=== PATIENT | female | born 1990 | race African-American/Black ===

== ENCOUNTER 2018-12-09 08:56 | Emergency (ER) | payer OTHER ==
[2018-12-09 09:12] VITALS: BP 115/76
[2018-12-09] MEDS ORDERED: ALBUTEROL NEB 2.5 MG/3 ML INH STA (09:19)
--- NOTE | 2018-12-09 09:28 | ED Physician Documentation ---
History of Present Illness - Stated complaint Stated Complaint: COUGH/TIGHT CHEST - Chief complaint Chief Complaint: General - History obtained from History obtained from: Patient - History of Present Illness Timing: Yesterday Pain level max: 7 Pain level now: 2 Improved by: rest Worsened by: nothing - Additonal information Additional information: 28-year-old female presents to the emergency department with mild dry cough and chest tightness. She states that it became suddenly tight this morning lasted for approximately 30 seconds and is now feeling better. Still feels like she is having trouble taking a deep breath. States she has not had any fevers. States that she does have nasal congestion and difficulty breathing through her nose. Has not taken anything for this. Denies any possibility of . She is not currently or breast-feeding. She does not use any medications at home. Review of Systems Ten Systems: 10 systems reviewed and negative Constitutional: denies: Fever, Chills Nose: reports: Rhinorrhea / runny nose, Congestion Throat: denies: Sore throat Respiratory: reports: Dyspnea, Cough, Wheezing GI: denies: Abdominal Pain, Nausea, Vomiting, Diarrhea : denies: Now EGA Skin: denies: Rash Musculoskeletal: denies: Neck pain, Back pain Neurologic: denies: Headache PD PAST MEDICAL HISTORY - Past Medical History Past Medical History: No - Past Surgical History Past Surgical History: No - Present Medications Home Medications: Ambulatory Orders Medication Instructions Recorded Confirmed Albuterol Sulf [Ventolin Hfa 1 - 2 puffs INH Q4HR PRN #1 inhaler 12/09/18 Inhaler] Benzonatate [Tessalon Perle] 100 - 200 mg PO TID PRN #30 capsule 12/09/18 Cetirizine HCl/Pseudoephedrine 1 each PO BID PRN #30 tab.er.12h 12/09/18 [Zyrtec-D Tablet] - Allergies Allergies/Adverse Reactions: Allergies Allergy/AdvReac Type Severity Reaction Status Date / Time No Known Drug Allergies Allergy Verified 12/09/18 09:12 - Living Situation Living Arrangement: reports: At home - Social History Does the pt have substance abuse?: No - Family History Family history: reports: Non contributory - Immunizations Immunizations are current?: Yes PD ED PE NORMAL - Vitals Vital signs reviewed: Yes - General General: Alert and oriented X 3, No acute distress, Well developed/nourished - HEENT HEENT: Ears normal, Moist mucous membranes, Pharynx benign - Neck Neck: Supple, no meningeal sign - Cardiac Cardiac: RRR, Strong equal pulses - Respiratory Respiratory: No respiratory distress, Other (Mild decreased breath sounds bilate rally) - Abdomen Abdomen: Soft, Non tender, Non distended - Derm Derm: Warm and dry, No rash - Extremities Extremities: No edema - Neuro Neuro: Alert and oriented X 3 - Psych Psych: Normal mood, Normal affect Results - Vitals Vitals: Vital Signs - 24 hr 12/09/18 09:00 Temperature 36.4 C L Heart Rate 83 Respiratory 18 Rate Blood Pressure 115/76 O2 Saturation 100 Oxygen O2 Source Room air PD MEDICAL DECISION MAKING - ED course Complexity details: re-evaluated patient, considered differential, d/w patient ED course: 28-year-old female with what appears to be a viral upper respiratory infection. She is very well-appearing, nontoxic. Appears to have had bronchospasm this morning. Will prescribe an inhaler for home. Feels better after albuterol here. We will have her follow-up with her doctor as needed for further care. Patient counseled regarding signs and symptoms for which I believe and urgent re-evaluation would be necessary. Patient with good understanding of and agreement to plan and is comfortable going home at this time This document was made in part using voice recognition software. While efforts are made to proofread this document, sound alike and grammatical errors may occur. Departure - Departure Disposition: 01 Home, Self Care Clinical Impression: Viral URI with cough Condition: Good Instructions: ED URI Viral Follow-Up: your,doctor if not better in 1 week [Other] Prescriptions: Albuterol Sulf [Ventolin Hfa Inhaler] 1 - 2 puffs INH Q4HR PRN #1 inhaler PRN Reason: Shortness Of Air/Wheezing Benzonatate [Tessalon Perle] 100 - 200 mg PO TID PRN #30 capsule PRN Reason: Cough Cetirizine HCl/Pseudoephedrine [Zyrtec-D Tablet] 1 each PO BID PRN #30 tab.er.12h PRN Reason: nasal congestion Comments: Return if you worsen. Drink plenty of fluids and rest. Use the inhaler as needed.
== END 2018-12-09 10:14 | disposition home or self-care (01) ==
LOC: ED 08:56
DX: J06.9 Acute upper respiratory infection, unspecified (principal); B97.89 Other viral agents as the cause of diseases classified elsewhere
CPT/HCPCS: 94640; 99283

== ENCOUNTER 2019-04-15 17:29 | Outpatient (CLI) | payer OTHER | END 2019-04-15 17:30 | disposition EMS.NT | LOC: EMS 17:29 | PROVIDERS: ATTEND Surgery | DX: R20.2 Paresthesia of skin (principal); R00.0 Tachycardia, unspecified ==

== ENCOUNTER 2019-04-28 19:38 | Emergency (ER) | payer OTHER ==
--- NOTE | 2019-04-28 20:03 | ED Physician Documentation ---
PD HPI NVD - Stated complaint Stated Complaint: VOMITING - Chief complaint Chief Complaint: Abd Pain - History obtained from History obtained from: Patient - History of Present Illness Timing - onset: Today Timing - duration: Hours Timing - details: Abrupt onset, Still present Associated symptoms: Abdominal pain (Intermittent cramping abdominal pain diffusely but more in the lower abdomen. She has also feeling her abdomen distended and "feeling like I am " after starting with the colonoscopy prep today. She has a colonoscopy scheduled tomorrow for evaluation of chronic constipation for the last many months. She has take daily stool softener and also does a daily enema to have bowel movements every 2 to 3 days.), Other (She did several glasses of the GoLYTELY and also had taken some mag citrate to start her colonoscopy prep. She became nauseous with abdominal bloating and vomited a couple of times. She denies any persistent pain.). No: Fever, Chest pain, Near syncope / syncope Contributing factors: No: Sick contact, Bad food Similar symptoms before: Has not had sx before (She has chronic constipation we will have occasional cramping but not to this degree or consistency. Had only started after the colonoscopy prep.) Review of Systems Constitutional: denies: Fever, Chills, Myalgias Nose: denies: Rhinorrhea / runny nose, Congestion Throat: denies: Sore throat Respiratory: denies: Cough GI: reports: Abdominal Pain (intermittent cramping), Abdominal Swelling (the past few hours), Nausea, Vomiting (2-3 times), Constipation. denies: Diarrhea, Hematemesis, Bloody / black stool : denies: Dysuria, Frequency, Discharge Musculoskeletal: denies: Back pain PD PAST MEDICAL HISTORY - Past Medical History Cardiovascular: None Respiratory: None Neuro: None Endocrine/Autoimmune: None GI: None PREPRESS OPERATOR: None : None HEENT: None Psych: Anxiety Musculoskeletal: None Derm: None - Past Surgical History Past Surgical History: No /PREPRESS OPERATOR: Dilation and currettage, Other - Allergies Allergies/Adverse Reactions: Allergies Allergy/AdvReac Type Severity Reaction Status Date / Time No Known Drug Allergies Allergy Verified 04/28/19 19:46 - Social History Does the pt smoke?: No Smoking Status: Never smoker Does the pt drink ETOH?: No Does the pt have substance abuse?: No - Immunizations Immunizations are current?: Yes - POLST Patient has POLST: No PD ED PE NORMAL - Vitals Vital signs reviewed: Yes - General General: Alert and oriented X 3, No acute distress (does not seem uncomfortable here. ), Well developed/nourished - Neck Neck: Supple, no meningeal sign, No adenopathy - Cardiac Cardiac: RRR, No murmur - Respiratory Respiratory: Clear bilaterally - Abdomen Abdomen: Soft, No organomegaly, Other (minimally tender lower abd midline, and both left and right. No guarding nor percussion tenderness. Her abd is distended generally but not tense. ). No: Normal bowel sounds (increased) - Female Female : Deferred - Rectal Rectal: Other (Minimal stool in vault; no impaction; guiac negative. ) - Back Back: No CVA TTP - Derm Derm: Normal color, Warm and dry Results - Vitals Vitals: Vital Signs - 24 hr 04/28/19 04/28/19 19:41 21:50 Temperature 36.4 C L 37.0 C Heart Rate 89 78 Respiratory 16 12 Rate Blood Pressure 136/72 H 116/77 O2 Saturation 100 100 Oxygen O2 Source Room air PD MEDICAL DECISION MAKING - ED course Complexity details: considered differential (Abdominal distention with increased bowel sounds while undergoing prep for colonoscopy tomorrow. She stopped the prep because of the bloating and cramping. She had not had stool output for a couple of days. She does do daily regular enemas and has chronic constipation so likely has some distended bowel. Rectal exam did not show any impaction. We gave a couple of enemas here. She is also given Toradol and Tylenol and Phenergan. She did have improvement in her nausea and the cramping had mostly gone away. She is given an added pain medicine but not to have it repeated/prescribed for concern of augmenting her constipation. She can continue some of the MiraLAX just not as aggressively as was being done for the colonoscopy prep, in order to get some stool output in the next day.), d/w patient Departure - Departure Disposition: 01 Home, Self Care Clinical Impression: Abdominal bloating with cramps Constipation Qualifiers: Constipation type: slow transit constipation Qualified Code(s): K59.01 - Slow transit constipation Condition: Stable Record reviewed to determine appropriate education?: Yes Instructions: ED Constipation Comments: Stay well-hydrated. You can continue with some of the MiraLAX one dosage every 2-3 hours tonight and tomorrow until stool output. This should minimize the amount of cramping associated with it. Tylenol or ibuprofen if needed for pains. Follow-up with your GI regarding rescheduling the colonoscopy. Discharge Date/Time: 04/28/19 21:58
[2019-04-28] MEDS ORDERED: PROMETHAZINE 25 MG TABLET PO STA (20:15)
[2019-04-28] MEDS ORDERED: ACETAMINOPHEN 325 MG TABLET PO STA (20:15)
[2019-04-28] MEDS ORDERED: KETOROLAC 30 MG/ML VIAL IM STA (20:15)
[2019-04-28] MEDS ORDERED: MINERAL OIL ENEMA 133 ML BOTTLE RC STA ×2 (20:15→21:09)
[2019-04-28] MEDS ORDERED: DOCUSATE SODIUM 100 MG CAPSULE PO STA (21:09)
[2019-04-28] MEDS ORDERED: HYDROcod/ACETAM 5/325 MG TABLET PO STA (21:50)
[2019-04-28] MEDS ORDERED: DICYCLOMINE 10 MG CAPSULE PO STA (21:50)
[2019-04-28 21:51] VITALS: BP 116/77
== END 2019-04-28 21:58 | disposition home or self-care (01) ==
LOC: ED 19:38
DX: K59.01 Slow transit constipation (principal); R14.0 Abdominal distension (gaseous); R11.2 Nausea with vomiting, unspecified
CPT/HCPCS: 96372; 99283; A9270; Q0169

== ENCOUNTER 2019-05-05 15:23 | Outpatient (CLI) | payer OTHER | END 2019-05-05 15:24 | disposition home or self-care (01) | LOC: DI.N 15:23 | PROVIDERS: ATTEND Internal Medicine Gastroenterology | DX: Z53.9 Procedure and treatment not carried out, unspecified reason (principal) ==

== ENCOUNTER 2020-02-03 07:00 | Outpatient (CLI) | payer MEDICARE, OTHER, MEDICAID ==
[2020-02-03 20:27] LABS: CANDIDA GROUP DNA POSITIVE (NEGATIVE); CANDIDA KRUSEI DNA NEGATIVE (NEGATIVE); TRICHOMONAS VAGINALIS DNA NEGATIVE (NEGATIVE)
== END 2020-02-03 23:59 | disposition home or self-care (01) ==
LOC: LAB.R 07:00
PROVIDERS: ATTEND Nurse Practitioner Obstetrics & Gynecology
DX: N76.0 Acute vaginitis (principal)
CPT/HCPCS: 87661; 87801

== ENCOUNTER 2020-04-13 21:43 | Outpatient (CLI) | payer MEDICARE, OTHER, MEDICAID ==
--- NOTE | 2020-04-14 18:22 | Ultrasound Report ---
Reason: ABD CRAMPING, DYSMENORRHEA Procedure Date: 04/13/2020 Accession Number: [id number] / [id number] Procedure: US - Pelvic w/Transvag+Doppler Ltd CPT Code: Final Report FULL RESULT: EXAM: PELVIC ULTRASOUND WITH TRANSVAGINAL AND WITH DOPPLER EXAM DATE: 04/13/2020 10:36 PM. CLINICAL HISTORY: Abdomen CRAMPING, DYSMENORRHEA. The patient is not . History of ablation in 2016 per patient. Patient does not get a period. COMPARISON: None. TECHNIQUE: Realtime transabdominal pelvic scan performed to identify the uterus and adnexa and as an overview of other pelvic structures, followed by transvaginal scan to provide greater detail of the uterus and adnexa, with static image documentation. Color and spectral Doppler technologies utilize. FINDINGS: Uterus: 7 x 3.1 x 4.5 cm, volume 51.6 cc. Anteverted position. Heterogeneous myometrium. Fundal posterior intramural fibroid measuring 1 x 1.2 x 1 cm. Endometrium: 5 mm. No vascularity is seen within the endometrium. Ill-defined endometrium. Cystic area seen at the lower uterine segment measuring 3 x 2 mm, could represent a focal area of fluid or cyst. Cervix: Unremarkable. Right Ovary: 4 x 1.7 x 3.9 cm, volume 13.6 cc. Normal echotexture and blood flow. Arterial and venous blood flow are present. Peak systolic velocity 10.9 cm/s, resistive index 0.6. Left Ovary: 3.7 x 1.7 x 1.8 cm, volume 5.9 cc. Normal echotexture and blood flow. Arterial and venous blood flow are present. Peak systolic velocity is 5.6 cm/s, resistive index is 0.6. Free Fluid: None. IMPRESSION: 1. Ill-defined endometrium, could be due to the ablation. Heterogeneous myometrium. These findings can also be seen with adenomyosis. Cystic area seen at the lower uterine segment and the endometrium measuring 3 x 2 mm, could represent a focal area of fluid or cyst. Small uterine fibroid. Heterogeneous uterus. 2. Arterial and venous blood flow are present in both ovaries. RADIA
== END 2020-04-13 21:44 | disposition home or self-care (01) ==
LOC: DI 21:43
PROVIDERS: ATTEND Physician Assistant
DX: R10.9 Unspecified abdominal pain (principal); N94.6 Dysmenorrhea, unspecified; D25.1 Intramural leiomyoma of uterus
CPT/HCPCS: 76830; 76856; 93976

== ENCOUNTER 2020-05-13 09:23 | Outpatient (CLI) | payer MEDICARE, OTHER, MEDICAID ==
[2020-05-13 08:25] LABS: BASOPHILS % (AUTO) 0.4 %; EOSINOPHILS # (AUTO) 0.2 10^3/uL (0.0-0.7); EOSINOPHILS % (AUTO) 3.6 %; LYMPHOCYTES % (AUTO) 43.7 %; MEAN CORPUSCULAR HGB CONC 33.9 g/dL (32.0-36.0); MEAN CORPUSCULAR VOLUME 94.3 fL (81.0-99.0); MONOCYTES # (AUTO) 0.3 10^3/uL (0.0-1.0); MONOCYTES % (AUTO) 7.1 %; NEUTROPHILS % (AUTO) 44.8 %; PLT - PLATELET COUNT 214 10^3/uL (130-450); RED BLOOD COUNT 4.38 10^6/uL (4.20-5.40); RED CELL DISTRIBUTION WIDTH 11.9 % (12.0-15.0); WHITE BLOOD COUNT 4.5 x10^3/uL (4.8-10.8)
[2020-05-13 08:31] LABS: INR 0.9 (0.8-1.2); PT - PROTHROMBIN TIME 10.6 secs (9.9-12.6)
[2020-05-13 08:38] LABS: PARTIAL THROMBOPLASTIN TIME 31.4 secs (24.9-33.3)
[2020-05-13 08:48] LABS: % IRON SATURATION 25 % (20-50); IRON 78 ug/dL (28-170); TOTAL IRON BINDING CAPACITY 311 ug/dL (250-450); TRANSFERRIN 222 mg/dL (192-382)
== END 2020-05-13 09:24 | disposition home or self-care (01) ==
LOC: LAB 09:23
PROVIDERS: ATTEND Obstetrics & Gynecology
DX: Z01.812 Encounter for preprocedural laboratory examination (principal); Z20.828 Contact with and (suspected) exposure to other viral communicable diseases; N99.85 Post endometrial ablation syndrome; R10.2 Pelvic and perineal pain
CPT/HCPCS: 83540; 84466; 85025; 85610; 85730; U0004; 81599

== ENCOUNTER 2020-05-18 05:23 | Day surgery (SDC) | payer MEDICARE, OTHER, MEDICAID ==
[2020-05-18] MEDS ORDERED: ROCURONIUM 50 MG/5 ML VIAL IVP ONE (05:24)
[2020-05-18] MEDS ORDERED: NEOSTIGMINE 1 MG/1 ML 10 ML MDV IVP ONE (05:24)
[2020-05-18] MEDS ORDERED: ONDANSETRON 4 MG/2 ML VIAL IVP ONE (05:24)
[2020-05-18] MEDS ORDERED: DEXAMETHASONE 4 MG/ML VIAL IVP ONE (05:24)
[2020-05-18] MEDS ORDERED: fentaNYL 250 MCG/5 ML VIAL IVP ONE (05:24)
[2020-05-18] MEDS ORDERED: PROPOFOL 200 MG/20 ML VIAL IVP ONE (05:24)
[2020-05-18] MEDS ORDERED: GLYCOPYRROLATE 1 MG/5 ML VIAL IVP ONE (05:24)
[2020-05-18] MEDS ORDERED: MIDAZOLAM 2 MG/2 ML VIAL IVP ONE (05:24)
[2020-05-18] MEDS ORDERED: ACETAMINOPHEN 1,000 MG/100 ML 100 ML IV ONE (06:28)
[2020-05-18] MEDS ORDERED: CELECOXIB 100 MG CAPSULE PO ONE (06:28)
[2020-05-18] MEDS ORDERED: GABAPENTIN 400 MG CAPSULE ONE (06:29)
[2020-05-18] MEDS ORDERED: CEFAZOLIN SODIUM IN 0.9 % NACL 2 GM/100 ML BAG IV ONE (06:30)
[2020-05-18 06:46] LABS: HCG UR QUAL NEGATIVE
[2020-05-18] MEDS ORDERED: LACTATED RINGERS 1,000 ML IV ONE (07:02)
[2020-05-18] MEDS ORDERED: VASOPRESSIN 20 UNIT/ML VIAL ONE (07:03)
[2020-05-18] MEDS ORDERED: METHYLENE BLUE 0.5% 50 MG/10 ML AMPULE ONE (07:03)
[2020-05-18] MEDS ORDERED: LIDOCAINE 1%-EPI 1:100000 20 ML MDV ONE (07:15)
[2020-05-18] MEDS ORDERED: LIDOCAINE 1%-EPI 1:100000 20 ML MDV SUBQ ONE (07:20)
[2020-05-18] MEDS ORDERED: METHYLENE BLUE 0.5% 50 MG/10 ML AMPULE IR ONE (07:20)
[2020-05-18] MEDS ORDERED: SCOPOLAMINE PATCH TOP ONE (07:22)
--- NOTE | 2020-05-18 07:22 | ANESTHESIA ---
Pre-Anesthesia VS, & Labs - Diagnosis post ablation syndrome, chronic pelvic pain - Procedure vaginal hysterectomy Vital Signs: Temp Pulse Resp BP Pulse Ox 36.3 C L 75 18 114/83 H 100 05/18/20 06:30 05/18/20 06:30 05/18/20 06:30 05/18/20 06:30 05/18/20 06:30 Height 5 ft 7 in Weight (kg) 66.1 kg Body Mass Index 20.3 - NPO >8 hours - Is Patient ?: No - Lab Results Current Lab Results: Laboratory Tests 05/18/20 07:00: POC Whole Bld Glucose 99 05/18/20 07:00: Crossmatch IS Only See Detail Lab results reviewed: Yes Home Medications and Allergies Home Medications: Ambulatory Orders No Known Home Medications 05/13/20 No Known Home Medications 05/13/20 Allergies/Adverse Reactions: Allergies Allergy/AdvReac Type Severity Reaction Status Date / Time morphine Allergy feels like Verified 05/13/20 07:44 body is burning, itching trazodone Allergy Anaphylaxis Verified 05/13/20 07:44 Anes History & Medical History - Anesthetic History Anesthesia Complications: reports: No previous complications Family history of Anesthesia Complications: Denies Family history of Malignant Hyperthermia: Denies - Medical History Cardiovascular: reports: None Pulmonary: reports: None Gastrointestinal: reports: None Urinary: reports: None Neuro: reports: None Musculoskeletal: reports: None Endocrine/Autoimmune: reports: None Blood Disorders: reports: None Skin: reports: None Smoking Status: Never smoker - Surgical History Gynecologic: Dilation and currettage, Other Exam General: Alert, Oriented x3, Cooperative Dental: WNL Mouth Openin Fingerbreadth Neck Mobility: Normal Mallampati classification: II Thyromental Distance: 4-6 cm Respiratory: Lungs clear Cardiovascular: Regular rate Plan Anesthesia Type: General Consent for Procedure(s) Verified and Reviewed: Yes Code Status: Attempt Resuscitation ASA classification: 1-Healthy patient Is this case an emergency?: No
[2020-05-18] MEDS ORDERED: PHENAZOPYRIDINE 100 MG TABLET PO ONE (07:37)
[2020-05-18] MEDS ORDERED: VASOPRESSIN 20 UNIT/ML VIAL IVP ONE ×2 (08:22)
[2020-05-18] MEDS: HYDROmorphone 1 MG/ML CARPUJECT ONE ×2 (10:27→10:36)
--- NOTE | 2020-05-18 10:31 | OPERATIVE REPORT ---
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 IV Fluids (mL): 1,000 Estimated Blood Loss (mL): 25 Urine Output (mL): 400 Indications: Patient is a 29 yo s/p ablation and bilateral salpingectomy now with chronic pelvic pain desiring definitive surgical managment. Patient was last seen in clinic on 04.20.20 at which time she discussed her surgical history in light of chronic pelvic pain. This pain has been an on-going issue for her and is not mitigated with NSAIDs or with progesterone. She wants to proceed with hysterectomy. She has already had a bilateral salpingectomy and ablation, fertility status will be not be affected further by hysterectomy. Findings: Normal appearing uterus and cervix. Normal appearing ovaries. Fallopian tubes are surgically absent. Cystoscopy performed post hysterectomy showed an intact bladder and visualization of bilateral ureteral jets. Complications: none - Other Other Information/Narrative: Consent was again confirmed. The patient was brought to the OR and underweight general anesthesia. She was placed in dorsal lithotomy with legs supported in yellowfin stirrups. Bimanual exam was performed. She was then prepared and draped in the usual sterile fashion. Briseno catheter was in place and backfilled with 50 cc of dilute methylene blue and clamped. SCDs were confirmed to be in place and operating. A surgical time out was performed. Administration of 2g IV cefazolin was confirmed. A weighted speculum was placed in the posterior vaginal vault. The cervix was grasped with a a double toothed tenaculum clamp on both its anterior and posterior lips. A total of 20 cc of 20mg vasopressin/100 cc was injected in a circumferential direction around the cervix. With downward traction, we made a circumferential incision of the vaginal epithelium at the junction of the cervix with the bovie cautery to aid entry into the peritoneum. The overlying vaginal epithelium was dissected off the underlying cervical stroma in an combination of sharp and blunt dissection. The cervicovesical space was then created by both blunt and sharp dissection. At no point was there spillage of methylene blue. Entrance into the anterior space was completed and a right angle retractor was inserted under the bladder. The posterior cul-de-sac was entered sharply in the same manner. A long necked weighted speculum was then placed in the vagina through the posterior space. The uterosacral ligaments were clamped with Frandy clamps and ligated with #0 Vicryl suture bilaterally. A moistened sponge stick was placed in the posterior cul de sac to retract the bowel and patient was placed in Trendelenburg position. A laparoscopic Ligasure bipolar device was then used to seal and ligate each pedicle. The uterosacral ligaments were suture ligated as above. The cardinal ligaments, uterine vessels, broad ligaments, and utero-ovarian pedicles were sealed and ligated with the Ligasure device. The ovaries were visualized on either side. The tubes were surgically absent. Ovaries were inspected as with findings noted above. We then removed the weighted duckbill speculum and placed a regular speculum in the vaginal vault and visualized the entire area. We inspected for hemostasis, and this was secured. The peritoneum was closed with 2-0 Vicryl with a running purse string suture. The uterosacral ligaments were then fixed to the anterior and posterior vaginal cuff margins to aid in vaginal support. The vaginal cuff was then closed with interrupted figure of 8 sutures using 0-Vicryl. Hemostasis was excellent. The vaginal vault was cleared of debris. The sponge count was correct times 2 at this time. A Briseno catheter was then unclamped. The bladder was drained and the Briseno was removed. The cystoscope was inserted and the bladder was distended with normal saline. The survey of all of the bladder surfaces was completed and was noted to be absent of suture or trauma. Ureteral jets were observed directly bilaterally. Bladder was drained and cystoscope was removed. Briseno catheter was replaced. All instruments were removed from the vagina and crook hemostasis was noted. The patients procedure was terminated. She was sent to the Recovery Room in good condition. Dr. Quintero assisted with retraction, assistance with suturing, cystoscopy, and sharing of surgical insight.
[2020-05-18] MEDS ORDERED: ONDANSETRON 4 MG/2 ML VIAL IVP PRN (10:59)
[2020-05-18] MEDS ORDERED: ONDANSETRON ODT 4 MG TABLET TL PRN (10:59)
--- NOTE | 2020-05-18 11:07 | HISTORY & PHYSICAL EXAMINATION ---
HPI - Admitted From Admitted from: OR, Direct admit - History of Present Illness HPI Comment/Other: CC: dysmenorrhea/cramping/pain HPI: Pt is here today for a consult to discuss proposed surgery and pain control ...................................................................IRON Ybarra May 02, 2020 2:13 PM Patient is a 29 yo s/p ablation and bilateral salpingectomy now with chronic pelvic pain; wants to discuss surgical managment. Patient was last seen in clinic on 04.20.20 at which time she discussed her surgical history in light of chronic pelvic pain. This pain has been an on-going issue for her and is not mitigated with NSAIDs or with progesterone. She wants to proceed with hysterectomy. She reports that she has had multiple blood transfusions, one during her salpingectomy and one during her last delivery. She has had a bilateral salpingectomy and an ablation, so her fertility status will remain unchanged by hysterectomy. She is no longer pursuing egg retrieval and gestational carrier for a future . Her pap has not yet been results from her prior visit. No changes in health hx since time of prior exam. 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) Preop exam (ICD-V72.84) (HCS60-D14.818) Pelvic pain (ICD-625.9) (INB27-X10.2) Screening for cervical cancer (ICD-V76.2) (SBC32-T88.4) Vaginitis (ICD-616.10) (ETA43-F35.0) Other specified postprocedural states (ICD-V45.89) (ZXD72-O26.890) Depression (DVL57-K81.8) Anxiety (ICD-300.00) (ZTB33-L50.9) Amenorrhea (ICD-626.0) (ONR25-O44.2) Risk Factors: Smoked Tobacco Use: Never smoker Smokeless Tobacco Use: Never Exercise: yes Type of Exercise: PT Alcohol Use: no Drug Use: no Vital Signs: Patient Profile: 29 Years Old Female Height: 68 inches Weight: 142 pounds BMI: 21.67 BP sittin / 80 Cuff size: regular Vitals Entered By: IRON Ybarra (May 02, 2020 2:13 PM) Meds Reviewed: Done Allergies Reviewed: Done No known allergies: T Questionnaire Would you like to become in the next year? No Are you currently using contraception? Yes Current contraception: Female sterilization End Method: Female sterilization Past Medical History: Headach/Migraines Recurrent UTI Arthritis Anxiety Depression Past Surgical History: D&C Salpingectomy 10/2016 PAWN BROKER Review of Systems ROS Comments: As per HPI, otherwise remaining systems are negative. Physical Constitutional: GEN: NAD HEAD: NCAT EYES: No scleral icterus or conjunctival injection NECK: No cervical LAD or TM CV: RRR RESP: CTAB, normal effort ABD: S&NT/ND PSYCH: appropriate affect NEURO: alert and oriented, normal gait and coordination EXT: WWP Impression & Recommendations: Problem # 1: Preop exam (ICD-V72.84) (EGE13-R45.818) Orders: PRE OP -13652 (CPT-00166) Patient has decided that she wants to proceed with hysterectomy She has had minimal abdominal surgery and 3 prior vaginal deliveries, anticipate TVH with possible TLH Reviewed risks/benefits/alternatives to procedure reviewed. Risks include, but are not limited to, bleeding, infection, damage to neatby tissue and organs. On average, EBL of up to 1 liter is considered within normal limits for CS. Risks of blood transfusion include infection Risk of HIV 1/2million nationwide Risk of Hepatitis 1/1 million Risks of transfusion reaction Infection risk moderate given clean/contaminated nature of procedure and IV antibiotics will be given. Damage to nearby tissue and organs including bladder, bowel, ureters, blood vessels, nerves, and fetus Damage may be noted intra-op and may be delayed until after the procedure is complete Reviewed management of complications and efforts to avoid such outcomes but reviewed that they may occur despite our best efforts She is aware that she must undergo pelvic rest for 6 weeks post op and cannot lift more than 10# for 4 weeks post op. Written informed consent obtained. Surgery request submitted Patient had reported need for pain meds over the phone prior to the visit, she declines prescription for pain medication at present PMH/PSH - Past Medical History Cardiovascular: positive: None Respiratory: positive: None Neuro: positive: None Endocrine/Autoimmune: positive: None GI: positive: None PAWN BROKER: positive: None : positive: None HEENT: positive: None Psych: positive: Anxiety Musculoskeletal: positive: None Derm: positive: None MRSA Hx?: No - Past Surgical History /PAWN BROKER: positive: Dilation and currettage, Other Social & Family Hx - Social History Does the pt smoke?: No Smoking Status: Never smoker Does the pt drink ETOH?: No Does the pt have substance abuse?: No Substance Use and Type: Marijuana - POLST Patient has POLST: No Meds/Allgy - Home Medications Home Medications: Ambulatory Orders Medication Instructions Recorded Confirmed No Known Home Medications 05/13/20 05/13/20 - Allergies Allergies/Adverse Reactions: Allergies Allergy/AdvReac Type Severity Reaction Status Date / Time morphine Allergy feels like Verified 05/13/20 07:44 body is burning, itching trazodone Allergy Anaphylaxis Verified 05/13/20 07:44 Exam - Vital Signs Vital Signs: Vital Signs x48h Temp Pulse Resp BP Pulse Ox 05/18/20 11:00 98.2 F 75 14 103/62 100 05/18/20 10:55 98.2 F 64 12 97/60 100 05/18/20 10:50 98.2 F 66 12 103/62 100 05/18/20 10:45 98.2 F 63 12 102/57 L 100 05/18/20 10:40 98.2 F 63 14 102/63 100 05/18/20 10:35 98.2 F 65 13 104/67 100 05/18/20 10:30 98.4 F 60 13 102/65 100 05/18/20 10:25 98.4 F 66 13 105/68 100 05/18/20 10:20 98.4 F 60 14 99/64 100 05/18/20 10:15 98.4 F 67 14 99/58 L 100 05/18/20 10:10 98.4 F 64 13 96/58 L 100 05/18/20 10:08 98.4 F 72 12 96/53 L 100 05/18/20 06:30 97.3 F L 75 18 114/83 H 100 Results - Lab Results Other Lab Results: Lab Results x24hrs 05/18/20 05/18/20 05/18/20 Range/Units 07:15 07:00 07:00 POC Whole Bld Glucose 99 (70 - 100) mg/dL Ur Specific [place] (1.002-1.030) Urine HCG, Qual Blood Type AB POSITIVE Blood Type Recheck AB POSITIVE Antibody Screen NEGATIVE Crossmatch IS Only See Detail 05/18/20 Range/Units 06:30 POC Whole Bld Glucose (70 - 100) mg/dL Ur Specific [place] 1.025 (1.002-1.030) Urine HCG, Qual NEGATIVE Blood Type Blood Type Recheck Antibody Screen Crossmatch IS Only
[2020-05-18] MEDS: LACTATED RINGERS 1,000 ML IV SCH ×2 (11:47→15:08)
[2020-05-18] MEDS: KETOROLAC 30 MG/ML VIAL IVP SCH ×2 (11:54→18:35)
[2020-05-18] MEDS: GABAPENTIN 300 MG CAPSULE PO SCH ×2 (13:04→21:15)
[2020-05-18] MEDS: SIMETHICONE CHEW 80 MG TABLET PO SCH ×2 (13:04→18:35)
[2020-05-18] MEDS: ACETAMINOPHEN 500 MG TABLET PO SCH ×2 (13:04→21:15)
--- NOTE | 2020-05-18 15:51 | PROVIDER PROGRESS NOTE ---
Subjective - Prog Note Date Prog Note Date: 05/18/20 Prog Note Time: 15:49 - Subjective Subjective: POD#0 s/p TVH with cystoscopy Briseno in place. Pain well managed. Has not yet been out of bed. Tolerated full lunch at midday. No NV. Objective - Vital Signs/Intake & Output Reviewed Vital Signs: Yes Vital Signs: Vital Signs x48h Temp Pulse Resp BP Pulse Ox 05/18/20 15:09 98.6 F 87 16 98/59 L 100 05/18/20 14:19 98.2 F 88 16 110/59 L 100 05/18/20 13:08 97.7 F 75 18 109/69 100 05/18/20 12:18 97.9 F 73 16 108/71 100 05/18/20 11:15 98.2 F 67 16 102/65 100 05/18/20 11:00 98.2 F 75 14 103/62 100 05/18/20 10:55 98.2 F 64 12 97/60 100 05/18/20 10:50 98.2 F 66 12 103/62 100 05/18/20 10:45 98.2 F 63 12 102/57 L 100 05/18/20 10:40 98.2 F 63 14 102/63 100 05/18/20 10:35 98.2 F 65 13 104/67 100 05/18/20 10:30 98.4 F 60 13 102/65 100 05/18/20 10:25 98.4 F 66 13 105/68 100 05/18/20 10:20 98.4 F 60 14 99/64 100 05/18/20 10:15 98.4 F 67 14 99/58 L 100 05/18/20 10:10 98.4 F 64 13 96/58 L 100 05/18/20 10:08 98.4 F 72 12 96/53 L 100 Intake & Output: Intake & Output 05/15/20 05/16/20 05/17/20 05/18/20 23:59 23:59 23:59 23:59 Intake Total 1635 Output Total 1875 Balance -240 - Objective General Appearance: positive: No acute distress Respiratory: positive: No respiratory distress Cardiovascular: positive: Other (RR) Abdomen: positive: Non-tender (Soft and NT, mild distention), Other Skin: positive: Color nml, Warm, Dry Extremities: positive: Non-tender Neurologic/Psychiatric: positive: Oriented x3 - Lab Results Other Labs: Lab Results x24hrs 05/18/20 05/18/20 05/18/20 Range/Units 07:15 07:00 07:00 POC Whole Bld Glucose 99 (70 - 100) mg/dL Ur Specific [place] (1.002-1.030) Urine HCG, Qual Blood Type AB POSITIVE Blood Type Recheck AB POSITIVE Antibody Screen NEGATIVE Crossmatch IS Only See Detail 05/18/20 Range/Units 06:30 POC Whole Bld Glucose (70 - 100) mg/dL Ur Specific [place] 1.025 (1.002-1.030) Urine HCG, Qual NEGATIVE Blood Type Blood Type Recheck Antibody Screen Crossmatch IS Only Assessment/Plan - Problem List (1) History of total vaginal hysterectomy Impression: POD#0 s/p TVH/cystoscopy Doing well Tolerating po pain well managed. Requests ambien for sleep; order submitted Reviewed goals for discharge: ambulate, tolerate po, pain well managed, void with <50% PVR -Tolerating po -OK to remove Briseno once ambulatory. No concern if patient prefers to leave in overnight. -Encourage ambulation Anticipate DC home in am
[2020-05-18] MEDS ORDERED: ZOLPIDEM 5 MG TABLET PO PRN (15:54)
[2020-05-18] MEDS: HYDROmorphone 2 MG TABLET PO PRN (16:53)
[2020-05-18] MEDS: DOCUSATE SODIUM 100 MG CAPSULE PO SCH (21:15)
[2020-05-19] MEDS: KETOROLAC 30 MG/ML VIAL IVP SCH ×2 (00:13→05:25)
[2020-05-19] MEDS: LACTATED RINGERS 1,000 ML IV SCH ×2 (01:13→13:03)
[2020-05-19] MEDS: GABAPENTIN 300 MG CAPSULE PO SCH ×2 (05:25→13:45)
[2020-05-19] MEDS: ACETAMINOPHEN 500 MG TABLET PO SCH ×2 (05:25→13:45)
[2020-05-19 05:47] LABS: BASOPHILS % (AUTO) 0.1 %; HGB - HEMOGLOBIN 11.6 g/dL (12.0-16.0); LYMPHOCYTES # (AUTO) 1.7 10^3/uL (1.5-3.5); MEAN CORPUSCULAR HEMOGLOBIN 30.1 pg (27.0-31.0); MEAN CORPUSCULAR HGB CONC 32.5 g/dL (32.0-36.0); MEAN CORPUSCULAR VOLUME 92.7 fL (81.0-99.0); MONOCYTES # (AUTO) 0.7 10^3/uL (0.0-1.0); MONOCYTES % (AUTO) 7.6 %; NEUTROPHILS # (AUTO) 6.1 10^3/uL (1.5-6.6); NEUTROPHILS % (AUTO) 71.8 %; PLT - PLATELET COUNT 203 10^3/uL (130-450); RED BLOOD COUNT 3.85 10^6/uL (4.20-5.40); RED CELL DISTRIBUTION WIDTH 11.8 % (12.0-15.0); WHITE BLOOD COUNT 8.5 x10^3/uL (4.8-10.8)
[2020-05-19] MEDS ORDERED: ENOXAPARIN 40 MG/0.4 ML SYRINGE SUBQ SCH (09:00)
[2020-05-19] MEDS: SIMETHICONE CHEW 80 MG TABLET PO SCH ×2 (09:02→13:26)
[2020-05-19] MEDS: DOCUSATE SODIUM 100 MG CAPSULE PO SCH (09:03)
[2020-05-19] MEDS: HYDROmorphone 2 MG TABLET PO PRN (09:07)
--- NOTE | 2020-05-19 12:29 | PROVIDER PROGRESS NOTE ---
Subjective - Prog Note Date Prog Note Date: 05/19/20 Prog Note Time: 12:27 - Subjective Subjective: Patient has been up and ambulating. Tolerating po. Briseno catheter has been removed; awaiting first void. Patient reports that her pain is well managed now but it was 10/10 this am. Improved with pain medication. States she is unable to sit because her bottom hurts. She is also constipated and has chronic constipation at baseline. Severe enough that she was supposed to undergo a conoloscopy but was unable to tolerate to prep and it was not completed. R equesting an enema this am. Objective - Vital Signs/Intake & Output Vital Signs: Vital Signs x48h Temp Pulse Resp BP Pulse Ox 05/19/20 09:00 98.2 F 75 18 102/62 100 05/19/20 05:05 98.4 F 76 16 92/49 L 100 Intake & Output: Intake & Output 05/16/20 05/17/20 05/18/20 05/19/20 23:59 23:59 23:59 23:59 Intake Total 2685 1000 Output Total 4200 1950 Balance -1515 -950 - Objective General Appearance: positive: No acute distress Neck: positive: Nml inspection Respiratory: positive: No respiratory distress Cardiovascular: positive: Other (RR) Abdomen: positive: Non-tender, Other (Mild distention, non tender. Soft) Skin: positive: Color nml Extremities: positive: Non-tender, Nml appearance, No pedal edema Neurologic/Psychiatric: positive: Oriented x3 - Lab Results Fish Bones: 05/19/20 04:52 Other Labs: Lab Results x24hrs 05/19/20 Range/Units 04:52 WBC 8.5 (4.8-10.8) x10^3/uL RBC 3.85 L (4.20-5.40) 10^6/uL Hgb 11.6 L (12.0-16.0) g/dL Hct 35.7 L (37.0-47.0) % MCV 92.7 (81.0-99.0) fL MCH 30.1 (27.0-31.0) pg MCHC 32.5 (32.0-36.0) g/dL RDW 11.8 L (12.0-15.0) % Plt Count 203 (130-450) 10^3/uL MPV 11.0 H (7.9-10.8) fL Neut # (Auto) 6.1 (1.5-6.6) 10^3/uL Lymph # (Auto) 1.7 (1.5-3.5) 10^3/uL Miner # (Auto) 0.7 (0.0-1.0) 10^3/uL Eos # (Auto) 0.0 (0.0-0.7) 10^3/uL Baso # (Auto) 0.0 (0.0-0.1) 10^3/uL Absolute Nucleated RBC 0.00 x10^3/uL Nucleated RBC % 0.0 /100WBC Assessment/Plan - Problem List (1) History of total vaginal hysterectomy Impression: POD#1: Tolerating po Has ambulated, currently resting in bed Briseno catheter removed, awaiting first void Pain managed at present, patient reports it to be poorly managed Requests continued in-patient stay for pain management Aware that insurance reimbursement may not cover extended stay -Enema ordered -Scheduled ibuprofen/acetaminophen/gabapentin with po 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
[2020-05-19] MEDS ORDERED: MINERAL OIL ENEMA 133 ML BOTTLE RC SCH (13:00)
[2020-05-19] MEDS ORDERED: IBUPROFEN 600 MG TABLET PO SCH (13:00)
[2020-05-19 15:53] VITALS: BP 112/80
== END 2020-05-19 18:09 | disposition home or self-care (01) ==
LOC: SDS 05:23 → MS2 10:58 → SDS 05-19 18:09
PROVIDERS: ATTEND Obstetrics & Gynecology
PROC: 0UT97ZZ Resection of Uterus, Via Natural or Artificial Opening (ICD-10-PCS; principal; 2020-05-18 07:30)
DX: N94.6 Dysmenorrhea, unspecified (principal); N99.85 Post endometrial ablation syndrome
CPT/HCPCS: 36415; 58260; 81025; 85025; 86850; 86900; 86901; 86920; 88307; A9270; J0131; J0690; J1170; J1650; J3010; J3490; J7120

== ENCOUNTER 2020-05-23 20:14 | Emergency (ER) | payer MEDICARE, OTHER, MEDICAID ==
[2020-05-23 20:20] VITALS: BP 109/66
== END 2020-05-23 20:57 | disposition left against medical advice (07) ==
LOC: ED 20:14
DX: Z53.21 Procedure and treatment not carried out due to patient leaving prior to being seen by health care provider (principal)

== ENCOUNTER 2020-05-28 17:46 | Emergency (ER) | payer MEDICARE, OTHER, MEDICAID ==
[2020-05-28 18:02] VITALS: BP 112/88
--- NOTE | 2020-05-28 18:22 | ED Physician Documentation ---
History of Present Illness - Stated complaint Stated Complaint: R ANKLE INJ - Chief complaint Chief Complaint: Trauma Ext - History obtained from History obtained from: Patient, Family - History of Present Illness Timing: How many hours ago (1) Pain level max: 10 Pain level now: 7 - Additonal information Additional information: 29-year-old female presents to the emergency department with a right foot injury. She states she was running after a husky today, she states that she injured her foot while running and now cannot bear any weight. Worse with walking, better with rest. She did take 1 dose of oral Dilaudid prior to arrival. She has had a hysterectomy. No fall. Review of Systems Constitutional: denies: Fever, Chills Respiratory: denies: Cough GI: denies: Vomiting, Diarrhea : denies: Now EGA Skin: denies: Rash Musculoskeletal: denies: Neck pain, Back pain PD PAST MEDICAL HISTORY - Past Medical History Cardiovascular: None Respiratory: None Neuro: None Endocrine/Autoimmune: None GI: None SLEEVE SEWER: None : None HEENT: None Psych: Anxiety Musculoskeletal: None Derm: None - Past Surgical History Past Surgical History: No /SLEEVE SEWER: Dilation and currettage, Other - Present Medications Home Medications: Ambulatory Orders Medication Instructions Recorded Confirmed No Known Home Medications 05/13/20 05/13/20 - Allergies Allergies/Adverse Reactions: Allergies Allergy/AdvReac Type Severity Reaction Status Date / Time morphine Allergy feels like Verified 05/28/20 17:57 body is burning, itching trazodone Allergy Anaphylaxis Verified 05/28/20 17:57 - Social History Does the pt smoke?: No Smoking Status: Never smoker Does the pt drink ETOH?: No Does the pt have substance abuse?: No - Immunizations Immunizations are current?: Yes - POLST Patient has POLST: No PD ED PE NORMAL - Vitals Vital signs reviewed: Yes - General General: Alert and oriented X 3, No acute distress - HEENT HEENT: Moist mucous membranes - Neck Neck: Supple, no meningeal sign - Cardiac Cardiac: RRR - Respiratory Respiratory: No respiratory distress, Clear bilaterally - Derm Derm: Warm and dry - Extremities Extremities: Other (Tender to palpation at the base of the fifth metatarsal. No swelling. No deformity. Otherwise normal exam of the foot and ankle. No other tenderness. Normal exam of the proximal fibula and tibia as well.) - Neuro Neuro: Alert and oriented X 3 Results - Vitals Vitals: Vital Signs - 24 hr 05/28/20 17:59 Temperature 37.1 C Heart Rate 85 Respiratory 18 Rate Blood Pressure 112/88 H O2 Saturation 100 Oxygen O2 Source Room air - Rads (name of study) Right foot x-ray Radiology: Prelim report reviewed, EMP read contemporaneously, See rad report (No acute abnormality) Procedures - Splint (location) Right lower extremity Splint applied by: Physician, Tech Type of splint: Fiberglass, Short leg, Posterior Other: Patient tolerated well, No complications, Neurovascular intact, Crutches provided PD MEDICAL DECISION MAKING - ED course Complexity details: reviewed results, re-evaluated patient, considered differential, d/w patient ED course: 29-year-old female with what appears to be a right foot sprain. She cannot bear weight, therefore we will place her in a posterior splint make her nonweightbearing. Patient will follow-up with orthopedics for repeat evaluation. Patient counseled regarding signs and symptoms for which I believe and urgent re-evaluation would be necessary. Patient with good understanding of and agreement to plan and is comfortable going home at this time This document was made in part using voice recognition software. While efforts are made to proofread this document, sound alike and grammatical errors may occur. Departure - Departure Disposition: 01 Home, Self Care Clinical Impression: Sprain of foot, right Qualifiers: Encounter type: initial encounter Qualified Code(s): S93.601A - Unspecified sprain of right foot, initial encounter Condition: Good Instructions: ED Sprain Foot Follow-Up: [facility] [Provider Group] - Within 1 week Comments: Your x-ray does not show any acute fractures today. You are to be nonweightbearing until seen by orthopedics. Return if you worsen. Discharge Date/Time: 05/28/20 20:35
--- NOTE | 2020-05-28 18:38 | XRAY Report ---
PROCEDURE: Foot 3 View RT INDICATIONS: base of [facility] pain TECHNIQUE: 3 views of the foot were acquired. COMPARISON: None FINDINGS: Bones: No fractures or dislocations. No suspicious bony lesions. Soft tissues: No tibiotalar joint effusion. Achilles tendon appears normal. IMPRESSION: No visualized acute fracture or dislocation. However, occult injury cannot be excluded. Recommend lyndsey rt interval imaging follow-up in 7-10 days as clinically indicated for additional evaluation. Reviewed by: Altagracia Pham MD on 05/28/2020 6:36 PM PDT Approved by: Altagracia Pham MD on 05/28/2020 6:36 PM PDT Station ID: [id number]
== END 2020-05-28 20:35 | disposition home or self-care (01) ==
LOC: ED 17:46
DX: S93.601A Unspecified sprain of right foot, initial encounter (principal); X50.9XXA Other and unspecified overexertion or strenuous movements or postures, initial encounter; Y93.02 Activity, running
CPT/HCPCS: 29515